=== PATIENT | female | born 1980 | race Caucasian/White ===

== ENCOUNTER 2017-05-22 13:49 | Emergency (ER) | payer MEDICAID, OTHER ==
[2017-05-22] MEDS ORDERED: DEXAMETHASONE 10 MG/ML VIAL PO STA (14:30)
[2017-05-22] MEDS ORDERED: CHERRY SYRUP 10 ML UDC PO ONE (14:44)
[2017-05-22] MEDS ORDERED: DEXAMETHASONE 10 MG/ML VIAL ONE (14:44)
--- NOTE | 2017-05-22 14:52 | ED Physician Documentation ---
History of Present Illness - Stated complaint Stated Complaint: HEAD COLD - Chief complaint Chief Complaint: General - Additonal information Additional information: hx from pt healthy 37 y.o f denies preg to EZR with approx 1 week of severe head congestion, PND, sore throat, nasal drainage has tried tea etc does not normally take medications if avoidable - prefers natural measures Review of Systems Constitutional: denies: Fever Nose: reports: Rhinorrhea / runny nose, Congestion, Sinus pressure / pain Throat: reports: Sore throat Respiratory: reports: Cough : denies: Now EGA Immunocompromised: denies: Immunocompromised PD PAST MEDICAL HISTORY - Past Medical History Past Medical History: No - Past Surgical History Past Surgical History: No - Present Medications Home Medications: Ambulatory Orders Medication Instructions Recorded Confirmed Amoxicillin 500 mg PO Q8H #30 capsule 05/22/17 Fluticasone [Flonase] 1 sprays CASEY BID PRN #1 bottle 05/22/17 Pseudoephedrine [Sudafed] 30 mg PO Q6H PRN #20 tablet 05/22/17 - Allergies Allergies/Adverse Reactions: Allergies Allergy/AdvReac Type Severity Reaction Status Date / Time No Known Drug Allergies Allergy Verified 05/22/17 14:04 - Social History Does the pt smoke?: No Smoking Status: Never smoker Does the pt drink ETOH?: Yes Does the pt have substance abuse?: No - Immunizations Immunizations are current?: Yes PD ED PE NORMAL - Vitals Vital signs reviewed: Yes - General General: Alert and oriented X 3 - HEENT HEENT: PERRL, Ears normal, Moist mucous membranes (PMD and some erythema), Other (no focal sinus TTP or swelling) - Cardiac Cardiac: RRR - Respiratory Respiratory: No respiratory distress, Clear bilaterally - Derm Derm: Normal color - Neuro Neuro: Alert and oriented X 3 Results - Vitals Vitals: Vital Signs - 24 hr 05/22/17 13:58 Temperature 36.8 C Heart Rate 87 Respiratory 16 Rate Blood Pressure 116/88 H O2 Saturation 100 Oxygen O2 Source Room air - Labs Labs: Laboratory Tests 05/22/17 14:46 Group A Strep Rapid Negative PD MEDICAL DECISION MAKING - ED course ED course: sinus congestion and sore throat advised symptoamtic tx such as flonase, mirian pot, sudafed etc, will also give a single dose of sys steroid in ER to decrease swelling and congestion and provide relief pt wonders if antibiotics would clear the sx up faster and I explained most sinus infections are not bacterial and I do not rec ab at this point she really feels ab will resolve this issue so i advised would write an rx but I do not think it will be needed and that I want her to try sudafed flonase and mirian pot for min 72 hr first Departure - Departure Clinical Impression: Sinusitis Qualifiers: Sinusitis location: unspecified location Chronicity: acute Recurrence: not specified as recurrent Qualified Code(s): J01.90 - Acute sinusitis, unspecified Condition: Good Instructions: ED Sinusitis No Abx Follow-Up: Radha Tinsley MD [Primary Care Provider] - Prescriptions: Amoxicillin 500 mg PO Q8H #30 capsule Fluticasone [Flonase] 1 sprays CASEY BID PRN #1 bottle PRN Reason: congestion Pseudoephedrine [Sudafed] 30 mg PO Q6H PRN #20 tablet PRN Reason: congestion Comments: The rapid strep test was negative - a culture will be run as well and we will call you if it is positive Most sinus infections are not bacterial - they are often due to a viral or allergen process. I would recommend you try sudafed and flonase for congestion and a Mirian Pot or other sinus irrigation system to flush all the mucous and irritants out of the sinus cavities. Tylenol and motrin as needed for the pain or discomfort I do not think antibiotics are needed but I understand doctor and ER visits are expensive - so I have written a prescription for amoxicillin for you but I want you to try the symptomatic treatment with sudafed flonase and mirian pot for at least 72 hr before you consider taking the antibiotics - if you do take the antibiotic, please eat some yogurt with cultures every day to prevent diarrhea
[2017-05-22 14:59] LABS: RAPID STREP SCREEN REAGENT QC YELLOW (YELLOW)
[2017-05-22 15:21] VITALS: BP 103/74
== END 2017-05-22 15:48 | disposition home or self-care (01) ==
LOC: ED 13:49
DX: J01.90 Acute sinusitis, unspecified (principal)
CPT/HCPCS: 87070; 87430; 99283; A9270

== ENCOUNTER 2021-04-07 18:56 | Outpatient (CLI) | payer MEDICAID | END 2021-04-07 18:57 | disposition home or self-care (01) | LOC: COV 18:56 | PROVIDERS: ATTEND Family Medicine | DX: R50.9 Fever, unspecified (principal); M79.10 Myalgia, unspecified site; R53.83 Other fatigue; R07.0 Pain in throat; R19.7 Diarrhea, unspecified; Z20.822 Contact with and (suspected) exposure to COVID-19 ==

== ENCOUNTER 2022-01-26 14:51 | Outpatient (CLI) | payer MEDICAID ==
--- NOTE | 2022-01-27 12:14 | Mammography Report ---
BILATERAL DIGITAL SCREENING MAMMOGRAM 3D/2D: 01/26/2022 CLINICAL: Routine screening. Baseline exam. No prior exams were available for comparison. The tissue of both breasts is heterogeneously dense. T his may lower the sensitivity of mammography. No significant masses, calcifications, or other findings are seen in either breast. IMPRESSION: NEGATIVE There is no mammographic evidence of malignancy. A 1 year screening mammogram is recommended. This exam was interpreted at Station ID: [id number]. NOTE: For mammograms, a report in lay terms will be sent to the patient. Approximately 15% of breast malignancies will not be visualized mammographically. In the management of a palpable breast mass, a negative mammogram must not discourage biopsy of a clinically suspicious lesion. Electronically Signed By: Fercho Walker M.D. [facility] [place]:01/26/2022 17:45:31 ACR BI-RADS Category 1: Negative 3341F PARENCHYMAL PATTERN: (D) - The breast(s) demonstrate(s) heterogeneously dense fibroglandular rula gonzalez. BI-RADS CATEGORY: (1) - 1 RECOMMENDATION: (ANNUAL) - Recommend routine annual screening mammography. [id number] 1 year screening LATERALITY: (B)
== END 2022-01-26 14:52 | disposition home or self-care (01) ==
LOC: DI.S 14:51
PROVIDERS: ATTEND Family Medicine
DX: Z12.31 Encounter for screening mammogram for malignant neoplasm of breast (principal)

== ENCOUNTER 2023-12-27 08:03 | Outpatient (CLI) | payer MEDICAID ==
--- NOTE | 2023-12-27 11:53 | Ultrasound Report ---
PROCEDURE: Abdomen Limited INDICATIONS: RUQ PAIN TECHNIQUE: Real-time focused scanning was performed of the abdomen, with image documentation. COMPARISONS: None. FINDINGS: Liver: Liver is normal in size and homogeneous in echotexture. Gallbladder: No gallstones, sludge, wall thickening or pericholecystic edema. Biliary ducts: Intrahepatic bile ducts are non-dilated. Extrahepatic bile duct caliber measures 4.8 mm. Normal is 6-7 mm or less in diameter, or 10 mm or less post-cholecystectomy. Pancreas: Visualized portions of the pancreas are sonographically normal. Right kidney: Normal in size and echotexture. Right kidney measures 10.1 cm long. No hydronephrosis. There is a punctate echogenic focus in the midpole right kidney, potentially in the collecting syste m. No solid masses. No complex renal cystic lesions which require follow-up. IVC: Intrahepatic inferior vena cava is patent. Miscellaneous: No free abdominal fluid. IMPRESSION: Possible nonobstructing right intrarenal calculus. Otherwise normal right upper quadrant ultrasound. Reviewed by: Federica Whitlock MD on 12/27/2023 11:51 AM PDT Approved by: Federica Whitlock MD on 12/27/2023 11:51 AM PDT Station ID: [id number]
== END 2023-12-27 08:04 | disposition home or self-care (01) ==
LOC: DI 08:03
PROVIDERS: ATTEND Naturopath
DX: R10.11 Right upper quadrant pain (principal); R74.8 Abnormal levels of other serum enzymes

== ENCOUNTER 2024-01-11 13:55 | Outpatient (CLI) | payer MEDICAID ==
--- NOTE | 2024-01-12 11:49 | Mammography Report ---
BILATERAL DIGITAL SCREENING MAMMOGRAM 3D/2D: 01/11/2024 CLINICAL: Routine screening. Family history of breast cancer. Comparison is made to exam dated: 01/26/2022 mammogram - [facility]. Both breasts are heterogeneously dense, which may obscure small masses (category c / 51-75% glandular tissue). No significant masses, calcifications, or other findings are seen in either breast. There has been no significant interval change. IMPRESSION: NEGATIVE There is no mammographic evidence of malignancy. A 1 year screening mammogram is recommended. Based on the Tyrer Cuzick model (a risk assessment model) the patient's lifetime risk is 18.5% and he r 10 year risk is 3.1%. According to the ACR, ACS, and NCCN guidelines, an annual breast MRI exam jaun ng with mammogram is recommended if the patient's lifetime risk is 20% or greater. This exam was interpreted at Station ID: [id number]. NOTE: For mammograms, a report in lay terms will be sent to the patient. Approximately 15% of breast malignancies will not be visualized mammographically. In the management of a palpable breast mass, a negative mammogram must not discourage biopsy of a clinically suspicious lesion. Electronically Signed By: Kavita wilson/satish:01/11/2024 17:01:30 letter sent: No_Letter ACR BI-RADS Category 1: Negative 3341F PARENCHYMAL PATTERN: (D) - The breast(s) demonstrate(s) heterogeneously dense fibroglandular rula gonzalez. BI-RADS CATEGORY: (1) - 1 RECOMMENDATION: (ANNUAL) - Recommend routine annual screening mammography. [id number] 1 year screening LATERALITY: (B)
== END 2024-01-11 13:56 | disposition home or self-care (01) ==
LOC: DI.S 13:55
PROVIDERS: ATTEND Naturopath
DX: Z12.31 Encounter for screening mammogram for malignant neoplasm of breast (principal); R92.333 Mammographic heterogeneous density, bilateral breasts; Z80.3 Family history of malignant neoplasm of breast